=== PATIENT | female | born 1960 | race Asian ===

== ENCOUNTER 2020-09-23 12:41 | Outpatient (CLI) | payer OTHER ==
--- NOTE | 2020-09-25 10:22 | XRAY Report ---
PROCEDURE: Foot 3 View RT INDICATIONS: RIGHT FOOT PAIN TECHNIQUE: 3 views of the foot were acquired. COMPARISON: None FINDINGS: Bones: No fractures or dislocations. No suspicious bony lesions. Hallux valgus, bunion. Subchondra l cystic change in the distal head of the first metatarsal. Soft tissues: No tibiotalar joint effusion. Achilles tendon appears normal. IMPRESSION: 1. Hallux valgus, bunion. 2. Subchondral cystic change in the medial aspect of the first metatarsal head. Question: Does this p atient have laboratory evidence suggesting gout? Alternatively, a cystic change may potentially not b e related to an inflammatory process. Reviewed by: Juan Luis Burdick MD on 09/25/2020 9:20 AM [facility] Approved by: Juan Luis Burdick MD on 09/25/2020 9:20 AM [facility] Station ID: [id number]
== END 2020-09-23 12:42 | disposition home or self-care (01) ==
LOC: DI.N 12:41
PROVIDERS: ATTEND Physician Assistant
DX: M79.671 Pain in right foot (principal); S99.921A Unspecified injury of right foot, initial encounter; M20.11 Hallux valgus (acquired), right foot; M21.611 Bunion of right foot

== ENCOUNTER 2021-03-09 11:58 | Emergency (ER) | payer BC ==
[2021-03-09 12:21] VITALS: BP 120/65
--- NOTE | 2021-03-09 12:23 | ED Physician Documentation ---
History of Present Illness - Stated complaint Stated Complaint: C+ ANTIBODY TREATMEANT - Additonal information Additional information: 60-year-old female was advised to come to the emergency department for evaluation of candidacy for Mab therapy in the setting of COVID-19 infection. She is unvaccinated. Her tested positive for COVID-19 4 days ago. This morning patient woke up with generalized myalgias subjective fevers and cough. Denies loss of taste or smell. She went to [facility] and had a rapid test performed which was positive for COVID-19. Her daughter advised her that she could receive map therapy here in the emergency department. Patient has a history of hypertension as well as active tobaccoism. Denies diabetes, any history of heart or lung disease otherwise. In the room she appears remarkably well. No hypoxia or respiratory distress noted. Review of Systems Constitutional: reports: Fever, Myalgias, Fatigue Eyes: denies: Loss of vision Ears: reports: Reviewed and negative Nose: reports: Reviewed and negative Throat: reports: Reviewed and negative Cardiac: denies: Chest pain / pressure, Palpitations, Pedal edema, Calf pain Respiratory: reports: Cough. denies: Dyspnea, Hemoptysis, Wheezing GI: reports: Reviewed and negative : reports: Reviewed and negative Skin: reports: Rash, Lesions Musculoskeletal: reports: Reviewed and negative Neurologic: reports: Reviewed and negative PD PAST MEDICAL HISTORY - Allergies Allergies/Adverse Reactions: Allergies Allergy/AdvReac Type Severity Reaction Status Date / Time Iodinated Contrast Media Allergy Anaphylaxis Verified 03/09/21 12:18 PD ED PE NORMAL - General General: Alert and oriented X 3, No acute distress - HEENT HEENT: PERRL - Neck Neck: Supple, no meningeal sign - Cardiac Cardiac: RRR, No murmur - Respiratory Respiratory: Clear bilaterally - Abdomen Abdomen: Normal bowel sounds, Soft, Non tender, Non distended - Derm Derm: Warm and dry - Extremities Extremities: No deformity - Neuro Neuro: Alert and oriented X 3 Eye Opening: Spontaneous Motor: Obeys Commands Verbal: Oriented GCS Score: 15 PD MEDICAL DECISION MAKING - ED course Complexity details: d/w patient ED course: This is a very well-appearing 60-year-old female who presents the emergency department for evaluation of map therapy in the setting of a positive COVID-19 infection. Her daughter advised her to come to the emergency department. She is not vaccinated for COVID-19. On exam she appears very well. There is no hypoxia or adventitious breath sounds cardiopulmonary exam unremarkable. Her had tested positive for days ago and though she received a rapid test given the positivity in her as well as her unvaccinated state it is likely accurate. I did offer the patient map therapy however she has declined it at this time. We discussed that she is a candidate for map therapy within the first 10 days of onset of symptoms. We also discussed that she is higher risk for COVID-19 complications given her history of tobaccoism as well as hypertension. She was advised that she may return to the emergency department at any time for reevaluation or treatment with map therapy if appropriate. Emergent return precautions were discussed. Departure - Departure Disposition: 01 Home, Self Care Clinical Impression: COVID-19 Comments: Any you are seen in the ER today after testing positive for COVID-19 at [facility]. Though the test completed at the outpatient pharmacy is not as sensitive as the nasal test performed at the hospitals, you are likely still positive for COVID-19 as your has tested positive and you are not yet vaccinated. You are at higher risk for complications from COVID-19 because you are a smoker and have a history of high blood pressure. However your lungs sounds are nor mal, your heart sounds normal and your oxygen levels are normal Today in the emergency department we discussed the option of giving you monoclonal antibody therapy. This is the only treatment that is available on an outpatient basis for COVID-19. You can receive this infusion within 10 days of onset of symptoms. You declined to receive this therapy today. It is important that you go home and remain in quarantine for at least 10 days. Drinking lots of fluids and staying well-hydrated is important. You can return to the emergency department if you feel that your symptoms are worsening, you develop difficulty breathing, have oxygen saturations less than 90% or develop chest pain. I do encourage you to obtain the COVID 19 vaccination as soon as you are able.
== END 2021-03-09 12:35 | disposition home or self-care (01) ==
LOC: ED 11:58
DX: U07.1 COVID-19 (principal); M79.10 Myalgia, unspecified site; R50.9 Fever, unspecified; R05 Cough; I10 Essential (primary) hypertension; F17.200 Nicotine dependence, unspecified, uncomplicated
CPT/HCPCS: 99281; 99283

== ENCOUNTER 2021-03-12 10:20 | Emergency (ER) | payer BC ==
[2021-03-12 12:39] LABS: BASOPHILS % (AUTO) 0.2 %; HCT - HEMATOCRIT 42.3 % (37.0-47.0); HGB - HEMOGLOBIN 13.5 g/dL (12.0-16.0); LYMPHOCYTES # (AUTO) 1.2 10^3/uL (1.5-3.5); LYMPHOCYTES % (AUTO) 19.3 %; MEAN CORPUSCULAR HEMOGLOBIN 31.5 pg (27.0-31.0); MEAN CORPUSCULAR HGB CONC 31.9 g/dL (32.0-36.0); MEAN CORPUSCULAR VOLUME 98.8 fL (81.0-99.0); MEAN PLATELET VOLUME 10.3 fL (7.9-10.8); MONOCYTES # (AUTO) 0.4 10^3/uL (0.0-1.0); MONOCYTES % (AUTO) 5.7 %; NEUTROPHILS # (AUTO) 4.6 10^3/uL (1.5-6.6); NEUTROPHILS % (AUTO) 74.5 %; PLT - PLATELET COUNT 126 10^3/uL (130-450); RED BLOOD COUNT 4.28 10^6/uL (4.20-5.40); RED CELL DISTRIBUTION WIDTH 13.7 % (12.0-15.0); WHITE BLOOD COUNT 6.2 x10^3/uL (4.8-10.8)
--- NOTE | 2021-03-12 12:44 | XRAY Report ---
PROCEDURE: Chest 1 View X-Ray INDICATIONS: cough +covid TECHNIQUE: One view of the chest was acquired. COMPARISON: None FINDINGS: Surgical changes and devices: None. Lungs and pleura: No focal consolidation. Pulmonary vascular congestion. Mediastinum: Moderate cardiomegaly. Dual chamber implanted cardiac device. Bones and chest wall: No suspicious bony lesions. Overlying soft tissues appear unremarkable. IMPRESSION: Cardiomegaly with pulmonary vascular congestion. Reviewed by: Toñito Perez on 03/12/2021 11:42 AM [facility] Approved by: Toñito Perez on 03/12/2021 11:42 AM [facility] Station ID: [id number]
[2021-03-12 12:48] LABS: ALBUMIN 3.5 g/dL (3.2-5.5); ALBUMIN/GLOBULIN RATIO 1.2 (1.0-2.2); BILIRUBIN,TOTAL 0.8 mg/dL (0.2-1.0); CALCIUM 8.2 mg/dL (8.5-10.3); CREATININE 1.4 mg/dL (0.4-1.0); POTASSIUM 4.1 mmol/L (3.5-5.0); TOTAL PROTEIN 6.4 g/dL (6.7-8.2)
--- NOTE | 2021-03-12 12:51 | ED Physician Documentation ---
PD HPI DYSPNEA - Stated complaint Stated Complaint: COUGH/SOA/BODY ACHES - Chief complaint Chief Complaint: Resp - History obtained from History obtained from: Patient - History of Present Illness Timing - onset: How many days ago (6) Timing - onset during: Rest Timing - details: Gradual onset, Still present Inciting event(s): URI Improved by: Rest Worsened by: Exertion, Coughing Associated symptoms: Fever, Cough, Wheezing Similar symptoms before: Has not had sx before Recently seen: Other - Additional information Additional information: 60-year-old female reports that 6 days ago she was exposed to her who has Covid and she subsequently became Covid +3 days ago. She has now developed fever cough chest pain. She refused monoclonal antibody therapy in the emergency department 3 days ago. Review of Systems Constitutional: reports: Fever, Chills, Myalgias, Fatigue, Sweats Eyes: denies: Decreased vision Ears: denies: Ear pain Nose: reports: Congestion. denies: Rhinorrhea / runny nose Throat: denies: Sore throat Cardiac: denies: Chest pain / pressure, Palpitations, Pedal edema, Calf pain Respiratory: reports: Dyspnea, Cough, Wheezing GI: reports: Abdominal Pain, Nausea : denies: Dysuria, Frequency Skin: denies: Rash Musculoskeletal: denies: Neck pain, Back pain, Extremity pain Neurologic: reports: Generalized weakness. 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 : None Psych: None Musculoskeletal: None Derm: Eczema - Past Surgical History Past Surgical History: Yes /CONVERTER OPERATOR: Hysterectomy Cardiovascular: Pacemaker, AICD - Present Medications Home Medications: Ambulatory Orders Medication Instructions Recorded Confirmed Aspirin [Aspirin EC] 81 mg PO DAILY 03/12/21 03/12/21 Atorvastatin Calcium 40 mg PO HS 03/12/21 03/12/21 Azithromycin [Zithromax] 250 mg PO DAILY #6 tablet 03/12/21 Bumetanide 2 mg PO DAILY 03/12/21 03/12/21 Metoprolol Succinate 100 mg PO DAILY 03/12/21 03/12/21 Potassium Chloride [K-Dur] 20 meq PO DAILY 03/12/21 03/12/21 Rivaroxaban [Xarelto] 20 mg ORAL DAILY 03/12/21 03/12/21 Sacubitril/Valsartan [Entresto 49 1 tab ORAL BID 03/12/21 03/12/21 mg-51 mg Tablet] - Allergies Allergies/Adverse Reactions: Allergies Allergy/AdvReac Type Severity Reaction Status Date / Time Iodinated Contrast Media Allergy Anaphylaxis Verified 03/12/21 11:29 - Social History Does the pt smoke?: No Smoking Status: Current every day smoker Does the pt drink ETOH?: No Does the pt have substance abuse?: No - Immunizations Immunizations are current?: No Immunizations: Other immun not current PD ED PE NORMAL - Vitals Vital signs reviewed: Yes (Wide pulse pressure) - General General: Alert and oriented X 3, No acute distress, Well developed/nourished - HEENT HEENT: Atraumatic, PERRL, EOMI - Neck Neck: Supple, no meningeal sign, No bony TTP - Cardiac Cardiac: RRR, No murmur - Respiratory Respiratory: No respiratory distress, Other (Bibasilar rhonchi worse on the left than the right) - Abdomen Abdomen: Soft, Non tender - Back Back: No CVA TTP, No spinal TTP - Derm Derm: Normal color, Warm and dry, No rash - Extremities Extremities: No deformity, No edema - Neuro Neuro: Alert and oriented X 3, 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, No motor deficit, No sensory deficit, Normal speech Eye Opening: Spontaneous Motor: Obeys Commands Verbal: Oriented GCS Score: 15 - Psych Psych: Normal mood, Normal affect Results - Vitals Vitals: Vital Signs - 24 hr 03/12/21 03/12/21 03/12/21 11:32 11:52 12:55 Temperature 37.3 C 38.8 C H 38.8 C H Heart Rate 61 63 52 L Respiratory 20 20 20 Rate Blood Pressure 115/53 L 115/53 L 108/50 L O2 Saturation 98 96 97 Oxygen O2 Source Room air - Labs Labs: Laboratory Tests 03/12/21 03/12/21 12:27 12:27 WBC 6.2 RBC 4.28 Hgb 13.5 Hct 42.3 MCV 98.8 MCH 31.5 H MCHC 31.9 L RDW 13.7 Plt Count 126 L MPV 10.3 Neut # (Auto) 4.6 Lymph # (Auto) 1.2 L Worth # (Auto) 0.4 Eos # (Auto) 0.0 Baso # (Auto) 0.0 Absolute Nucleated RBC 0.00 Nucleated RBC % 0.0 Sodium 138 Potassium 4.1 Chloride 102 Carbon Dioxide 26 Anion Gap 10.0 BUN 26 H Creatinine 1.4 H Estimated GFR (MDRD) 38 L Glucose 123 H Calcium 8.2 L Total Bilirubin 0.8 AST 38 ALT 41 Alkaline Phosphatase 108 Total Protein 6.4 L Albumin 3.5 Globulin 2.9 Albumin/Globulin Ratio 1.2 Lipase 36 - Rads (name of study) chest Radiology: Prelim report reviewed (Impression: Cardiomegaly with pulmonary vascular congestion.), EMP read indepedently, See rad report PD MEDICAL DECISION MAKING - ED course Complexity details: reviewed old records, reviewed results, re-evaluated patient, considered differential, d/w patient ED course: 60-year-old female with a history of atrial fibrillation and congestive heart failure who is on Xarelto and metoprolol has developed COVID-19 pneumonia. She is 6 days into her illness third day of symptoms refused monoclonal antibody 3 days ago she is accepting of this today. She is at risk for all facets of that COVID-19 and has pneumonia on her chest x-ray she is administered additional fluid as well as Regeneron dexamethasone and we will start her on a azithromycin. Departure - Departure Disposition: 01 Home, Self Care Clinical Impression: Pneumonia due to COVID-19 virus Condition: Stable Instructions: ED Pneumonia Adult, COVID-19 [facility], Flu and Cold: Nutrition, Prevention and Treatment Tips Follow-Up: Shae Cantu MD [Primary Care Provider] - Prescriptions: Azithromycin [Zithromax] 250 mg PO DAILY #6 tablet
[2021-03-12] MEDS ORDERED: CASIRIVIMAB/IMDEVIMAB 10 ML in SODIUM CHLORIDE 0.9% 50 ML IV ONE (13:00)
[2021-03-12] MEDS ORDERED: SODIUM CHLORIDE 0.9% 1,000 ML IV STA (13:12)
[2021-03-12] MEDS ORDERED: DEXAMETHASONE 10 MG/ML VIAL IVP STA (14:01)
[2021-03-12] MEDS ORDERED: ACETAMINOPHEN 325 MG TABLET PO STA (14:07)
[2021-03-12 15:03] VITALS: BP 97/50
== END 2021-03-12 15:15 | disposition home or self-care (01) ==
LOC: ED 10:20
DX: U07.1 COVID-19 (principal); J12.82 Pneumonia due to coronavirus disease 2019; I11.0 Hypertensive heart disease with heart failure; I50.9 Heart failure, unspecified; I48.91 Unspecified atrial fibrillation; Z79.01 Long term (current) use of anticoagulants; Z79.82 Long term (current) use of aspirin; F17.200 Nicotine dependence, unspecified, uncomplicated
CPT/HCPCS: 36415; 71045; 80053; 83690; 85025; 96361; 96374; 99283; 99284; A9270; J7040; M0243; Q0244